=== PATIENT | female | born 1980 | race African-American/Black ===

== ENCOUNTER 2019-02-05 01:04 | Inpatient (IN) ==
[2019-02-05] MEDS ORDERED: ZYPREXA ONE (01:09)
[2019-02-05] MEDS ORDERED: STERILE WATER INJ. ONE (01:11)
[2019-02-05] MEDS ORDERED: ZYPREXA IM ONE (01:11)
[2019-02-05] MEDS ORDERED: ATIVAN IM ONE (01:11)
[2019-02-05 01:55] LABS: BASO# 0.02 X1000 (0.0-0.2); BASO% 0.2 % (0.0-0.8); EOS# 0.02 X1000 (0.0-0.7); EOS% 0.2 % (0.0-10.0); HEMATOCRIT 38.8 % (37.0-47.0); HEMOGLOBIN 12.9 g/dL (12.0-16.0); IMM GRAN# 0.04 X1000 (0.0-0.04); IMM GRAN% 0.3 % (0.0-0.5); LYMPH# 4.29 X1000 (1.2-3.4); LYMPH% 34.3 % (20.5-51.1); MCH 29.5 PG (27-31); MCHC 33.2 g/dL (33-37); MCV 88.8 FL (81-99); MONO# 0.83 X1000 (0.11-0.59); MONO% 6.6 % (1.7-9.3); MPV 10.2 FL (7.4-10.4); NEUT# 7.31 X1000 (1.4-6.5); NEUT% 58.4 % (42.2-75.2); PLT 342 X1000 (130-400); RBC 4.37 XMIL (4.2-5.4); RDW 14.7 % (11.5-14.5); WBC 12.51 X1000 (4.8-10.8)
[2019-02-05 01:56] LABS: AGAP 23; BUN 10 mg/dL (8-22); CALCIUM 9.4 mg/dL (8.8-10.2); CHLORIDE 102 mmol/L (98-107); COSMO 289; CREATININE 0.9 mg/dL (0.5-0.9); ESTIMATED GFR > 60; GLUCOSE 188 mg/dL (70-104); POTASSIUM 3.8 mmol/L (3.5-5.1); SODIUM 143 mmol/L (136-145); TCO2 18 mmol/L (25-35)
[2019-02-05] MEDS ORDERED: NS 1,000 ML ONE (02:05)
[2019-02-05] MEDS ORDERED: NS 1,000 ML IV ONE ×3 (02:07→04:09)
[2019-02-05 02:26] LABS: URINE SOURCE CATH
[2019-02-05 02:28] LABS: UR AMPHETAMINES QUAL NONE DETECTED (NONE DETECT); UR BARBITUATES QUAL NONE DETECTED (NONE DETECT); UR BENZODIAZEPIN QUAL NONE DETECTED (NONE DETECT); UR CANNABINOIDS QUAL NONE DETECTED (NONE DETECT); UR COCAINE QUAL NONE DETECTED (NONE DETECT); UR METHADONE QUAL NONE DETECTED (NONE DETECT); UR METHAMPHETAMINE QUAL NONE DETECTED (NONE DETECT); UR OPIATES QUAL NONE DETECTED (NONE DETECT); UR OXYCODONE QUAL NONE DETECTED (NONE DETECT); UR PCP QUAL NONE DETECTED (NONE DETECT); UR PROPOXYPHENE QUAL NONE DETECTED (NONE DETECT); UR TCA QUAL NONE DETECTED (NONE DETECT)
[2019-02-05 02:30] LABS: BILIRUBIN URINE NEGATIVE (NEGATIVE); BLOOD URINE NEGATIVE (NEGATIVE); COLOR YELLOW; GLUCOSE URINE NEGATIVE (NEGATIVE); KETONE URINE 20 mg/dL (NEGATIVE); LEUKOCYTES URINE NEGATIVE (NEGATIVE); NITRITE URINE NEGATIVE (NEGATIVE); PROTEIN URINE 100 mg/dL (NEGATIVE); SP GRAVITY URINE 1.026; TURBIDITY URINE CLEAR (CLEAR); UR EPITHELIAL CELLS <10 /HPF (<10); URINE BACTERIA NEGATIVE /HPF; URINE RBC <10 /HPF (<10); URINE WBC <10 /HPF (<10); UROBILINOGEN URINE NORMAL (NORMAL)
[2019-02-05 03:02] LABS: ACETAMINOPHEN < 1.2 ug/mL (10-30); SALICYLATES < 3.00 mg/dL (3-10)
--- NOTE | 2019-02-05 04:01 | PROVIDER DOCUMENTATION ---
This chart was entered by Bon Anders Scribe, acting as scribe for Irineo Carroll MD. [id number] Abuse/Overdose - General Chief Complaint: Intoxicated Stated Complaint: DELIRIUM Time Seen by Provider: 02/05/19 01:11 Source: patient, police, EMS Home Medications: Home Medication List Medication Instructions Recorded Confirmed Last Taken Type Unobtainable [Home Meds 02/05/19 02/05/19 Unknown History Unobtainable] - History of Present Illness-Drug/Alcohol Nature of Presenting Problem: 39 yof presents to the ed v/a ems w/ 3 police officers. Police reports pt was wondering around [employer] naked since 11pm. police states "asked pt if had room pt kept rocking, swaying , and wouldn't keep eyes open, pt was found pt in hotel lobby by police." Police states "pt was at hot w/ god sister watching [employer] god-sister thought pt was asleep." pt was arrested by [employer] and arrives in handcuffs v/a ems. EMS reports it is combative, trying to bite, fighting and is restrained. This episode of drinking or use began:: just prior to arrival Psychiatric Complaints: reports: angry, agitated, hostile Review of Systems - Adult - REVIEW OF SYSTEMS - ADULT ROS:: unobtainable per condition Constitutional: reports: no symptoms reported Eyes: reports: no symptoms reported Ears, Nose, Mouth & Throat: reports: no symptoms reported Cardiovascular: reports: no symptoms reported Respiratory: reports: no symptoms reported Gastrointestinal: reports: no symptoms reported Genitourinary: reports: no symptoms reported Musculoskeletal: reports: no symptoms reported Integumentary: reports: no symptoms reported Neurological: reports: no symptoms reported Psychiatric: reports: no symptoms reported Endocrine: reports: no symptoms reported Hematologic/Lymphatic: reports: no symptoms reported Allergic/Immunologic: reports: no symptoms reported All Other Systems: Reviewed and Negative Past History - Adult - PAST MEDICAL HISTORY-ADULT Review of Records: reports: Nursing Assessment Review, Medications Reviewed Major Childhood Illnesses: reports: denies history Cardiovascular: reports: denies history Respiratory: reports: denies history Gastrointestinal: reports: denies history Obstetrical/Gynecological: reports: denies history Genitourinary: reports: denies history Musculoskeletal: reports: denies history Neurological: reports: denies history Psychiatric: reports: denies history Endocrine/Immune: reports: denies history Other Conditions: reports: denies history - PRIOR SURGERIES/PROCEDURES Surgical/Procedure History: reports: reviewed, not pertinent - IMMUNIZATION STATUS Childhood Immunizations: See Nurse Assessment Flu Vaccine: See Nurse Assessment - FAMILY HISTORY Family History: reviewed, not pertinent - SOCIAL HISTORY Living Situation: other (unable to obtain information) Physical Exam-General - PHYSICAL EXAM-ADULT Initial Vital Signs Reviewed: Yes - CONSTITUTIONAL General Appearance: combative, other (uncooperative) - EYES Eyes: other (clear) - HEAD, EARS, NOSE, MOUTH & THROAT HENMT: normocephalic/atraumatic - NECK Neck: full range of motion, supple - RESPIRATORY Respiratory: lungs clear - CARDIOVASCULAR Cardiovascular: tachycardia - CHEST (BREASTS) Chest/Breast: deferred - GASTROINTESTINAL (ABDOMEN) Abdominal Exam: non tender, soft - GENITOURINARY Female Genitalia/Pelvic Exam: deferred Rectal Exam: deferred Hemoccult Exam: deferred - MUSCULOSKELETAL Back Exam: normal inspection, no vertebral tenderness Extremity: normal range of motion, non-tender Peripheral Pulses: radial (R): 2+, radial (L): 2+ - SKIN Integumentary: normal color, normal turgor - NEUROLOGIC Neurologic: other (nonfocal) - PSYCHIATRIC Psych/Mental Status: other (agitated) Progress - PLAN OF CARE/RESULTS Progress/Plan/Lab Results: Vital Signs - 8 hr 02/05/19 01:10 02/05/19 01:57 02/05/19 01:58 Temperature 97.6 F Pulse Rate 150 H 95 H 100 H Respiratory Rate 20 20 19 Blood Pressure 169/93 68/48 71/39 O2 Sat by Pulse Oximetry 93 L 93 L 93 L 02/05/19 02:00 02/05/19 02:06 02/05/19 02:08 Temperature Pulse Rate 94 H 83 97 H Respiratory Rate 20 19 20 Blood Pressure 68/43 70/45 73/48 O2 Sat by Pulse Oximetry 93 L 93 L 91 L 02/05/19 02:09 02/05/19 02:15 Temperature Pulse Rate 98 H 100 H Respiratory Rate 19 18 Blood Pressure 80/56 104/73 O2 Sat by Pulse Oximetry 93 L 98 Bedside Urine ED: Urine Bedside Start: 02/05/19 01:21 Freq: NOW Status: Active Protocol: Activity Type Activity Date Activity User E-Sign Co-Sign Detail Recorded Client Recorded Date Recorded By Document 02/05/19 01:21 [id number] 02/05/19 01:22 [id number] 02/05/19 01:21 Point of Care [Bedside Point of Care] -Lot # [id number] - Results Negative -Control Line Visible? Yes Laboratory Results - last 24 hr 02/05/19 02/05/19 02/05/19 01:20 01:20 01:20 WBC 12.51 H RBC 4.37 Hgb 12.9 Hct 38.8 MCV 88.8 MCH 29.5 MCHC 33.2 RDW Std Deviation 14.7 H Plt Count 342 MPV 10.2 Immature Gran % (Auto) 0.3 Neut % (Auto) 58.4 Lymph % (Auto) 34.3 [place] % (Auto) 6.6 Eos % (Auto) 0.2 Baso % (Auto) 0.2 Immature Gran # (Auto) 0.04 Neut # (Auto) 7.31 H Lymph # (Auto) 4.29 H [place] # (Auto) 0.83 H Eos # (Auto) 0.02 Baso # (Auto) 0.02 Sodium 143 Potassium 3.8 Chloride 102 Carbon Dioxide 18 L Anion Gap 23 BUN 10 Creatinine 0.9 Estimated GFR/1.73 m2 > 60 BUN/Creatinine Ratio 11 Glucose 188 H Calculated Osmolality 289 Calcium 9.4 Urine Source Urine Color Urine Turbidity Urine pH Ur Specific [place] Urine Protein Ur Glucose (Stick) Ur Ketones (Stick) Urine Blood Urine Nitrite Urine Bilirubin Urobilinogen Dipstick Urine Leukocytes Urine WBC (Auto) Urine RBC (Auto) U Epithel Cells (Auto) Urine Bacteria (Auto) Salicylates Urine Opiates Screen NONE DETECTED Ur Oxycodone Screen NONE DETECTED Urine Methadone Screen NONE DETECTED U Propoxyphene Qual NONE DETECTED Acetaminophen Ur Barbituates Screen NONE DETECTED Ur Tricyclics Screen NONE DETECTED Ur Phencyclidine Scrn NONE DETECTED Ur Amphetamines Screen NONE DETECTED U Methamphetamines Scrn NONE DETECTED U Benzodiazepines Scrn NONE DETECTED Urine Cocaine Screen NONE DETECTED U Cannabinoids Screen NONE DETECTED Plasma/Serum Ethyl Alc 02/05/19 02/05/19 02/05/19 01:20 01:20 01:20 WBC RBC Hgb Hct MCV MCH MCHC RDW Std Deviation Plt Count MPV Immature Gran % (Auto) Neut % (Auto) Lymph % (Auto) [place] % (Auto) Eos % (Auto) Baso % (Auto) Immature Gran # (Auto) Neut # (Auto) Lymph # (Auto) [place] # (Auto) Eos # (Auto) Baso # (Auto) Sodium Potassium Chloride Carbon Dioxide Anion Gap BUN Creatinine Estimated GFR/1.73 m2 BUN/Creatinine Ratio Glucose Calculated Osmolality Calcium Urine Source CATH Urine Color YELLOW Urine Turbidity CLEAR Urine pH 6.0 Ur Specific [place] 1.026 Urine Protein 100 A Ur Glucose (Stick) NEGATIVE Ur Ketones (Stick) 20 A Urine Blood NEGATIVE Urine Nitrite NEGATIVE Urine Bilirubin NEGATIVE Urobilinogen Dipstick NORMAL Urine Leukocytes NEGATIVE Urine WBC (Auto) <10 Urine RBC (Auto) <10 U Epithel Cells (Auto) <10 Urine Bacteria (Auto) NEGATIVE Salicylates < 3.00 L Urine Opiates Screen Ur Oxycodone Screen Urine Methadone Screen U Propoxyphene Qual Acetaminophen < 1.2 L Ur Barbituates Screen Ur Tricyclics Screen Ur Phencyclidine Scrn Ur Amphetamines Screen U Methamphetamines Scrn U Benzodiazepines Scrn Urine Cocaine Screen U Cannabinoids Screen Plasma/Serum Ethyl Alc Orders Category Date Time Status Cardiac Monitoring DIRECTED Care 02/05/19 01:14 Active ED: Urine Bedside NOW Care 02/05/19 01:21 Active Restraint Init/Renew Violent ONCE Care 02/05/19 01:12 Active ACETAMINOPHEN [TDM] Stat Lab 02/05/19 01:20 Completed ALCOHOL BLOOD Stat Lab 02/05/19 01:20 Completed BMP [BASIC METABOLIC PANEL] [CHEM] Stat Lab 02/05/19 01:20 Completed CBC WITH ELECTRONIC DIFF [HEME] Stat Lab 02/05/19 01:20 Completed SALICYLATES [TDM] Stat Lab 02/05/19 01:20 Completed URINALYSIS W/POSS RFLX CULT [URINALYSIS] Stat Lab 02/05/19 01:20 Completed URINE DRUG SCREEN PL Stat Lab 02/05/19 01:20 Completed 0.9% Sodium Chloride Inj [Ns] 1,000 ml Med 02/05/19 02:05 Discontinued .ROUTE As directed 0.9% Sodium Chloride Inj [Ns] 1,000 ml Med 02/05/19 02:07 Discontinued IV 999 mls/hr 0.9% Sodium Chloride Inj [Ns] 1,000 ml Med 02/05/19 02:44 Discontinued IV 999 mls/hr Lorazepam [Ativan] Med 02/05/19 01:11 Discontinued 2 mg IM NOW ONE Olanzapine [Zyprexa] Med 02/05/19 01:09 Discontinued 10 mg .ROUTE .STK-MED ONE Olanzapine [Zyprexa] Med 02/05/19 01:11 Discontinued 10 mg IM NOW ONE Water, Sterile Inj [Sterile Water Inj.] Med 02/05/19 01:11 Discontinued 10 ml .ROUTE .STK-MED ONE Oxygen Device Stat Oth 02/05/19 02:07 Active Pulse Oximetry Stat Oth 02/05/19 01:14 Active EKG [EKG] Stat Ther 02/05/19 01:42 Ordered Result Diagrams: 02/05/19 01:20 02/05/19 01:20 Departure - Departure Date of Disposition Decision: 02/05/19 Time of Disposition Decision: 04:01 DIAGNOSIS: Overdose Qualifiers: Encounter type: initial encounter Injury intent: undetermined intent Qualified Code(s): T50.904A - Poisoning by unspecified drugs, medicaments and biological substances, undetermined, initial encounter Hypotension Qualifiers: Hypotension type: unspecified hypotension type Qualified Code(s): I95.9 - Hypotension, unspecified Disposition: ADMITTED INPATIENT 09 Certified Medical Emergency: Emergent Condition: Stable Referrals and Follow-Ups: None,PCP [Primary Care Provider] - - Critical Care Note This patient required my direct & personal management of CC.: No Attestation - Physician/ BETTIE Attestation Patient care was provided by Advanced Practice Provider:: No The physician spent face to face time with patient:: Yes Advanced Practice Provider documentation review:: Supervising physician onsite and consulted in the evaluation and care of this patient. The physician did have a face to face encounter with the patient. This chart was documented by the indicated scribe, (Bon Anders, Iain) and accurately reflects the services I performed and decisions made by me, Irineo Carroll MD, as attested by the provider's signature.
[2019-02-05 05:30] LABS: INR 0.9; PROTIME 12.6 Seconds (11.0-16.0)
[2019-02-05 05:37] LABS: ALBUMIN 5.1 g/dL (3.5-5.0); ALKALINE PHOSPHATASE 63 U/L (32-104); CK PROFILE 356 U/L (24-173); DIRECT BILIRUBIN < 0.20 mg/dL (0.00-0.20); GOT 25 U/L (10-30); GPT 16 U/L (10-36); MAGNESIUM 2.2 mg/dL (1.5-2.7); TOTAL PROTEIN 7.9 g/dL (6.3-8.3)
[2019-02-05 06:28] LABS: CK INDEX 1.2 (0.0-2.5); CK-MB 4.25 ng/mL (0.0-5.0)
--- NOTE | 2019-02-05 07:21 | Diag Imaging Result Doc PS360 ---
CHEST-PORTABLE - 02/05/2019 INDICATION: Leukocytosis,Overdose,Hypoxoia COMPARISON: None FINDINGS: The lungs are normally expanded and clear. Heart size and mediastinal contours are normal. No pneumothorax or pleural effusion. IMPRESSION: Negative exam. Electronically signed by Osbaldo Ramirez 02/05/2019 7:19 AM
--- NOTE | 2019-02-05 07:26 | Diag Imaging Result Doc PS360 ---
CT HEAD W/O CONTRAST - 02/05/2019 INDICATION: AMS,Poss. Overdose COMPARISON: None FINDINGS: The ventricles and sulci are normal in size and contour. No intracranial mass or hemorrhage. The skull is intact. The sinuses mastoids and middle ears are clear. IMPRESSION: Negative exam. This exam was performed using automated exposure control, adjustment of mA or kV according to patient size, and/or use of iterative reconstruction technique Electronically signed by Osbaldo Ramirez 02/05/2019 7:24 AM
[2019-02-05] MEDS ORDERED: ATIVAN IV PRN (08:09)
[2019-02-05 11:08] VITALS: BP 165/116
--- NOTE | 2019-02-05 11:11 | PROGRESS NOTE ---
DATE: 02/05/2019 SUBJECTIVE: I have seen and examined Ms. Tolbert today. She is in the ICU. I understand that she initially presented to [facility] with the police officers. The history she is not able to verbalize, but she is writing, and she was very clear on writing. She understands everything. Apparently, she had come from [place] yesterday for a gnosticist member's friend's and apparently everything went well, but then when she went to sleep, she does not know what really happened next. She does not remember. All that she knows is that she was in the custody of the police and they sent her to the hospital and she was brought to a different hospital and she was brought here. When I asked if she remembers anything that transpired with the police, she writes that she does not. OBJECTIVE: Vital signs: Blood pressure is 151/100, pulse is 99, respirations 17, temperature 94 degrees. The patient is saturating 94 on ambient air. General: Ms. Tolbert is a 38-year-old female. She is in bed, no distress. HEENT: Mucosa is pink and moist. Anicteric. Acyanotic. Neck: Supple. Chest: Clear to auscultation. No crepitations. No rhonchi. Cardiovascular: Regular rate and rhythm. Abdomen: Soft, nontender. Bowel sounds present. Extremities: No pedal edema. TRANSFER WORKER: Patient is awake, alert, oriented. She remains nonverbal. However, she understands perfectly everything. I understand that she does not talk to other members of the staff. However, she writes well. She communicates well with her nurse writing and she was able to communicate very well with me by writing. She will smile occasionally, but she will not talk at all. She moves all extremities and she follows commands. Psychiatric: She is calm. She is very cooperative. She only refers that she does not remember what happened last night. LABORATORY DATA: WBC is 12.51. CBC is unremarkable. Chemistry is also reviewed, completely unremarkable. Creatinine is minimally elevated. The patient's urine drug screen was completely negative. Alcohol level was 0. ASSESSMENT: 1. Acute psychotic reaction with violent behavior and complete naked exposure last night. According to the patient, she does not know what happened. She does not remember the details of anything that happened last night. Her initial CT scan was negative. I understand she was extremely boisterous and violent, and her blood pressure initially was slightly low. However, this morning she is very calm, mentating well. All of her labs look for the most part unremarkable. Her urine drug screen is completely negative. I think she is back to her baseline except that she is just not talking. We will get Psych to evaluate her and whatever their recommendations will be, will go from there. From medical standpoint, I think she is fairly stable to be discharged. 2. Obesity with BMI of 36.5. 3. Mild rhabdomyolysis. 4. High anion gap metabolic acidosis. The patient is refusing any further blood testing, so we cannot repeat this. Unfortunately, lactate and acetone were not obtained, but an ABG was not obtained and patient is refusing to do that. cc: Anthony Will MD MTDD
--- NOTE | 2019-02-05 11:43 | HISTORY AND PHYSICAL ---
CHIEF COMPLAINT: Altered mental status. HISTORY OF PRESENT ILLNESS: This is a 38-year-old female who presented to [facility] via EMS with 3 police officers. According to the chart, the police reported that the patient was wandering around the hotel naked for approximately 2 hours. Police reported that they asked the patient if they had a room and the patient was swaying, rocking, could not keep her eyes open. Evidently, the patient was there with a family member. They had traveled from [place] for a . The patient was arrested and EMS was called. According to the chart, the patient was combative, trying to bite, fight people. At the time of my exam, the patient is in intensive care at [facility]. She is cooperative. She will not speak. She will make eye contact with her nurse, Radha. She will nod yes and no to any questions from Radha. She will ignore any other personnel. When Radha asks her a question, she will write an answer on a piece of paper, tear the little strip of paper containing the answer off of a larger page, and hand it to Radha. The patient denied any alcohol or illicit drug use. She denied taking any aorb-giz-biyqzle medications other than gummy vitamins, melatonin, and gummy sleeping medicines. She would not elaborate any farther on brands or where she obtains these medications. PAST MEDICAL HISTORY: Unknown. PAST SURGICAL HISTORY: Unknown. SOCIAL HISTORY: Unknown. ALLERGIES: Unknown. HOME MEDICATIONS: Unknown. REVIEW OF SYSTEMS: Unable to obtain. PHYSICAL EXAMINATION: GENERAL: This is a 38-year-old female who is sitting up on the bed in the ICU, in no distress. VITAL SIGNS: Blood pressure is 146/82, with a heart rate of 94, respirations are 16, temperature is 97.6 degrees, with room air saturations that are 98 to 100 percent on 2 L nasal cannula. EYES: Pupils are equal, round, react to light. EOMs are intact. Sclerae are anicteric. HENT: Head is normocephalic, atraumatic. Mucous membranes are moist. NECK: Supple, with trachea midline. CARDIOVASCULAR: Regular rate and rhythm. S1 and S2 appreciated. PULMONARY: Breath sounds are clear with no increased work of breathing noted. Chest rises and falls symmetric with respirations. GASTROINTESTINAL: Abdomen is soft, nontender, nondistended, with bowel sounds in all 4 quadrants. NEUROLOGIC: The patient is alert. She is awake. She does not follow commands. She does move extremities at random. She will withdraw from pain. She will write notes only when to questions asked by her nurse, Radha. She will nod yes and no to her nurse, Radha. SKIN: Warm and dry. LABS: WBC is 12.5, with hemoglobin 12.9, hematocrit 38.8, and platelets of 342,000. Sodium 143, potassium 3.8, BUN 10, creatinine 0.9, with a glucose of 188. Troponin is negative. Urinalysis is essentially negative. Urine drug screen reveals none detected. Blood alcohol reveals none detected. Salicylates are less than 3 and acetaminophen is less than 1.2. CT of the head reveals negative exam. Chest x-ray reveals negative exam. ASSESSMENT: 1. Altered mental status. This has resolved. 2. Hypotension. This has resolved. Blood pressures are remaining in the 120-170/70-100 range. PLAN: The patient has been admitted to ICU, placed on telemetry which will continue. We will continue with neuro checks. Ativan 1 mg IV q.4 hours for agitation or combativeness. We will check a hemoglobin A1c. Recheck a BMP and a CK total. She will remain n.p.o. We will attempt to obtain any history or medications from family members. Further treatments pending hospital course. Plan discussed with Dr Will. Dictated by PAULINO Lawson for Anthony Will MD cc: PAULINO Lawson MD [facility]
--- NOTE | 2019-02-05 17:12 | DISCHARGE SUMMARY ---
ADMISSION DATE: 02/05/2019 DISCHARGE DATE: 02/05/2019 DISPOSITION: Home. CONSULTATION DURING THIS ADMISSION: Monico Flores was consulted. However, patient was not willing to talk to them. ADMISSION DIAGNOSES: 1. Altered mental status. 2. Hypotension. DIAGNOSES AT THE TIME OF DISCHARGE: 1. Altered mental status with violent and belligerent behavior associated with naked exposure. 2. Obesity with BMI of 36.5. 3. Mild rhabdomyolysis. 4. High anion gap metabolic acidosis. PRESENTING COMPLAINT: Altered mental status. HISTORY OF PRESENTING COMPLAINT: Ms. Tolbert is a 38-year-old female who is resident of [place], [place]. Came to [place] yesterday for . Apparently after the , she retired to her hotel room with her girlfriend. The girlfriend was sleeping; she woke up at about 1:00 early this morning, and said that her friend, who is the patient, was wandering naked around the hotel property and that when the police stopped her and started questioning her, she became extremely violent, and they sent her to [facility]. Over there, she was evaluated. I understand a lot of staff had to help to subdue her. She was brought to [facility] for higher level of care. HOSPITAL COURSE: Ms. Tolbert was initially admitted to the ICU. Her urine drug toxicology was completely negative. Initially, she was not talking to any staff at all here in [facility] except for her nurse, Ms. Garcia, and then when I went to evaluate her, she was also able to communicate with me, and her communication was only through writing. She remained completely aphasic and would not talk at all. She would smile, but she would not talk. According to Ms. Garcia, the nurse, the friend refers that this is not the first time Ms. Tolbert has not wanted to be talking. Anyway, this morning when I saw Ms. Tolbert, she was remarkably stable. She was communicating. She did not have any acute neurological deficits or signs. She refers that she does not remember what happened last night. We theorize that she might have gotten in touch with some form of drugs that gave her the altered mentation with possible psychotic reaction and she was brought to the emergency room. This morning, she is doing fine. I wanted Mark to evaluate her before she goes, but the patient refused to want to talk to Mark. We think from a medical standpoint, however, she is fine to be discharged. The nurse reached out to the police department, and they said she could go home. She is therefore being discharged to go home. I understand Ms. Tolbert did not even want to use the wheelchair and that she just walked out of the ICU without any problem. cc: Anthony Will MD
--- NOTE | 2019-02-06 09:11 | EKG Report ---
Test Performed on : 02/05/2019 01:53:08 AM Test Reason : pain Blood Pressure : / mmHG Vent. Rate : 096 BPM Atrial Rate : 096 BPM P-R Int : 104 ms QRS Dur : 072 ms QT Int : 394 ms P-R-T Axes : 053 025 -07 degrees QTc Int : 497 ms Sinus rhythm. with short AL Possible Left atrial enlargement Nonspecific ST and T wave abnormality Prolonged QT Abnormal ECG No previous ECGs available Confirmed by Dennys Rae MD ([id number]), newspaper or periodical editor Cindy Kuhn ([id number]) on 03/13/2019 12:38:06 PM
== END 2019-02-05 14:12 | disposition home or self-care (01) ==
LOC: P.ED 01:04 → ICU 05:53 → EDBD 05:53 → SUATTDRO 05:53
PROVIDERS: ATTEND Internal Medicine